=== PATIENT | female | born 1990 | race Caucasian/White ===

== ENCOUNTER 2017-10-14 17:29 | Emergency (ER) | payer SELFPAY ==
[~2017-10-14] VITALS: Ht 167.6 cm; Wt 70.6 kg
[2017-10-14] MEDS ORDERED: OXYcodone/APAP 5/325MG TABLET ONE (18:04)
[2017-10-14] MEDS ORDERED: KETOROLAC 30 MG/1 ML ONE (18:04)
[2017-10-14 18:07] LABS: CULTURE INDICATED? YES; MICROSCOPIC INDICATED
[2017-10-14] MEDS ORDERED: OXYcodone/APAP 5/325MG TABLET PO ONE (18:30)
[2017-10-14] MEDS ORDERED: KETOROLAC 30 MG/1 ML IM ONE (18:30)
[2017-10-14 18:54] LABS: HCG UR SG 1.021 (1.003-1.030)
[2017-10-14 19:36] LABS: BASOPHILS # (AUTO) 0.01 x10^3/uL (0-0.1); BASOPHILS % (AUTO) 0 % (0-1); EOSINOPHILS % (AUTO) 0 % (1-7); LYMPHOCYTES # (AUTO) 1.99 x10^3/uL (1-3.4); LYMPHOCYTES % (AUTO) 14 % (22-44); MD NO; MEAN CORPUSCULAR HEMOGLOBIN 29.7 pg (27.0-34.8); MEAN CORPUSCULAR HGB CONC 33.8 g/dL (32.4-35.8); MEAN CORPUSCULAR VOLUME 87.9 fL (80-100); MEAN PLATELET VOLUME 8.1 fL (7.4-10.4); MONOCYTES # (AUTO) 0.46 x10^3/uL (0.2-0.8); MONOCYTES % (AUTO) 3 % (2-9); NEUTROPHILS # (AUTO) 12.07 x10^3/uL (1.8-6.8); NEUTROPHILS % (AUTO) 83 % (42-75); PLATELET COUNT 310 x10^3/uL (130-400); RED CELL DISTRIBUTION WIDTH 13.1 % (9.6-15.2)
[2017-10-14 19:48] LABS: ALBUMIN 4.2 g/dL (3.4-5.0); ANION GAP 11 mmol/L (5-15); CALCIUM 8.9 mg/dL (8.5-10.1); CHLORIDE 107 mmol/L (98-107); CREATININE 0.66 mg/dL (0.55-1.02)
[2017-10-14 19:56] VITALS: BP 155/94
[2017-10-14] MEDS ORDERED: OMNIPAQUE 350 MG/ML, 100ML BOTTLE ONE (20:00)
== END 2017-10-14 21:30 | disposition home or self-care (01) ==
LOC: ED 18:55
DX: D27.1 Benign neoplasm of left ovary (principal)
CPT/HCPCS: 36415; 74177; 76830; 80048; 81001; 81025; 82040; 85025; 87086; 96372; 99285; J1885; Q9967